=== PATIENT | female | born 2000 | race Caucasian/White ===

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

== ENCOUNTER → 2021-11-20 | Outpatient (CLI) | payer BC ==
[~2021-11-20] MED LIST changes: -OXYC-471 PO; +OXYC1TAB11 PO
--- NOTE | 2021-11-20 15:41 | Diagnostic Imaging Report ---
PROCEDURE: Pelvic comp/transvaginal sonogram. TECHNIQUE: Complete transabdominal and transvaginal pelvic ultrasound was performed. In addition, limited pelvic Doppler was performed. INDICATION: IUD string is not seen on physical exam. Uterus is anteverted measuring 6.0 x 3.4 x 4.9 cm. IUD appears to be centered within the endometrial canal. No myometrial mass is detected. IUD does obscure the endometrium. Right ovary measures 4.6 x 2.1 x 3.6 cm and the left ovary measures 3.0 x 2.0 x 2.5 cm. Right ovary does contain a 16 mm cyst. There is blood flow to both ovaries. There is some free fluid present, perhaps physiologic. IMPRESSION: 1. IUD is centered within the endometrial canal. 2. There is a 16 mm right ovarian cyst. Dictated by: Dictated on workstation # [id number]
== END ==
LOC: RAD 14:11
PROVIDERS: ATTEND Nurse Practitioner Women's Health
DX: Z30.431 Encounter for routine checking of intrauterine contraceptive device (principal); N83.201 Unspecified ovarian cyst, right side
CPT/HCPCS: 76830; 76856